=== PATIENT | male | born 1985 ===

== ENCOUNTER 2024-01-04 17:51 | Emergency (ER) | payer OTHER, SELFPAY ==
[2024-01-04 17:55] VITALS: BP 144/99; PULSE 89; TEMP 36.7; O2SAT 98; BMI 37.3
--- NOTE | 2024-01-04 17:56 | ED_ITS ---
HPI - Skin/Abscess/Foreign Bdy General Chief complaint: Wound/Laceration Stated complaint: cyst on R shoulder Time Seen by Provider: 01/04/24 19:12 History of Present Illness ED Provider: Indio Jaimes MD HPI narrative: 38-year-old male otherwise healthy reports 8-10 days of an abscess of right superior shoulder. Seven days ago he saw his PCP's been on doxycycline adherent with the medication since that time. Denies any constitutional symptoms no neck stiffness or spreading but he feels like it has not improved despite the antibiotics. No history of hidradenitis suppurativa. Related Data Previous Rx's ?Medication ?Instructions ?Recorded cefadroxil 500 mg capsule 500 mg PO BID 5 days #10 caps 01/04/24 sulfamethoxazole 800 1 tab PO BID 5 days #10 tabs 01/04/24 mg-trimethoprim 160 mg tablet (Bactrim DS) Allergies Allergy/AdvReac Type Severity Reaction Status Date / Time No Known Allergies Allergy Unverified 01/04/24 17:56 [No Known Allergies*] [facility] Social History Social History Advance Directives: No Advance Directives Information Provided: No Physical Exam 2 Vital Signs: Vital Signs: Last Vital Signs Temp 97.9 F 01/04/24 18:44 Pulse 85 01/04/24 18:44 Resp 16 01/04/24 18:44 BP 130/79 01/04/24 18:44 Pulse Ox 97 01/04/24 18:44 O2 Del Method Room Air 01/04/24 18:44 BMI result Body Mass Index 37.3 Const: Other: GENERAL: Well appearing. No apparent distress. Alert. HEAD/NECK: No visual trauma. EYES: Normal to inspection. No conjunctival erythema. No discharge. ENMT: Hearing grossly normal. External nose normal. RESPIRATORY: Respiratory effort normal. CARDIOVASCULAR: Additional details (Grossly well perfused). SKIN: Proximally 4-5 cm erythematous fluctuant likely abscess lesion to the superior right shoulder right at the lateral trapezius the top of the shoulder. There is no surrounding lymphadenopathy redness. There is no lymphadenopathy of the neck his neck is supple. NEUROLOGICAL: Alert. Moving all extremities x4. Additional details (No gross motor deficits. Normal tone. ). PSYCHIATRIC: Alert. Appearance appropriate for situation. Course Course Course Narrative: This is a Rapid Medical Examination (RME) performed by Srinath Patrick PA-C in triage. Full HPI, ROS, assessment and treatment plan per primary provider in the Main ED. 38 yo male here for eval of cyst to R shoulder x8-9 days. reports pain/ warmth at the site. no histry of same. denies fever/ chills. + raised area erythema to right shoulder w/ central fluctuance. Warm, ttp. Plan: basic labs, I&D Medications Administered Discontinued Medications Generic Name Dose Route Start Last Admin Trade Name Cleo PRN Reason Stop Dose Admin Cephalexin HCl 500 mg 01/04/24 19:23 01/04/24 19:56 Cephalexin 500 Mg Capsule PO 01/04/24 19:24 500 mg ONCE ONE Administration Ibuprofen 800 mg 01/04/24 19:23 01/04/24 19:56 Ibuprofen 800 Mg Tablet PO 01/04/24 19:24 800 mg ONCE ONE Administration Lidocaine HCl 1 appl 01/04/24 19:23 01/04/24 19:56 Lidocaine 4 % Cream Kit TOPICAL 01/04/24 19:24 1 appl ONCE ONE Administration Protocol Lidocaine/Epinephrine 10 ml 01/04/24 19:23 01/04/24 19:56 Lidocaine Hcl 1%/Epi 1:100,000 10 Ml Vial INFILTRATI 01/04/24 19:24 10 ml ONCE ONE Administration Morphine Sulfate 15 mg 01/04/24 19:23 01/04/24 20:17 Morphine Sulfate Immed Release 15 Mg Tablet PO 01/04/24 19:24 Not Given ONCE ONE Trimethoprim/Sulfamethoxazole 1 tab 01/04/24 19:23 01/04/24 19:56 Sulfamethox/Trimeth 800/160 Tablet PO 01/04/24 19:24 1 tab ONCE ONE Administration Medical Decision Making Medical Decision Making MDM Narrative: 38-year-old male with superior right shoulder/trapezius superficial probably abscess. No constitutional symptoms or signs no sirs criteria. On doxycycline for 1 week. Plan for ultrasound to evaluate drainable collection, change antibiotics to Bactrim Keflex at minimum. After ultrasound see report below, there was a significant collection about 2 x 2.5 cm suggestive of abscess . No vascularity was seen. Needs decision was made after discussion with the patient to try incision and drainage see procedure note. We will escalate the antibiotics as planned above. Patient tolerated procedure well packing was placed he will come back in 2 days for packing removal and wound check. Ibuprofen Tylenol for pain, local dressing change counseled. __ EMERGENCY ULTRASOUND INTERPRETATION- Limited soft tissue [This study was ordered, performed, and interpreted by myself. The study reveals: Impression: Homogeneous, hypoechoic collection approximately 2 x 2.5 cm suggestive of abscess [Indication: Superficial fluctuance in the skin Findings: Homogeneous hypoechoic collection suggestive of abscess underlying the region of erythema on the shoulder/neck region Performed by: Indio Jaimes MD Images were stored on EMR through [employer] image archive software.] Lab Data MDM Lab Attestation statement: I reviewed the patient's lab results. 01/04/24 18:07 01/04/24 18:07 Labs: Lab Results 01/04/24 Range/Units 18:07 WBC 12.0 H (4.8-10.8) X10*3/uL RBC 5.08 (4.60-5.80) X10*6/uL Hgb 14.1 (14.0-18.0) g/dl Hct 41.9 L (42.0-52.0) % MCV 82.5 (80.0-98.0) fL MCH 27.8 (27.0-33.0) pg MCHC 33.7 (31.0-36.0) g/dl RDW 13.8 (11.0-16.0) % Plt Count 331 (160-400) X10*3/uL MPV 9.8 (9.4-12.4) fL Immature Gran % (Auto) 0.3 (0.0-0.4) % Neut % (Auto) 66.0 (45-73) % Lymph % (Auto) 23.5 (20-40) % Grayson % (Auto) 8.3 (2-11) % Eos % (Auto) 1.2 (0-4) % Baso % (Auto) 0.7 (0-2) % Lymph # (Auto) 2.8 (1.2-4.9) X10*3/uL Grayson # (Auto) 1.0 (0.1-1.2) X10*3/uL Eos # (Auto) 0.1 (0.0-0.4) X10*3/uL Baso # (Auto) 0.1 (0.0-0.2) X10*3/uL Abs Immat Gran (auto) 0.04 H (0.00-0.03) X10*3/uL Absolute Neuts (auto) 7.9 (2.0-8.3) x10*3/uL Absolute Nucleated RBC 0.000 (0.0-0.012) X10*3/uL Nucleated RBC % (auto) 0.0 (0.0-0.2) /100WBC Sodium 142 (135-145) mmol/L Potassium 4.0 (3.3-5.1) mmol/L Chloride 108 (96-108) mmol/L Carbon Dioxide 25 (22-29) mmol/L Anion Gap 13 (12-20) BUN 13 (9-16) mg/dL Creatinine 1.11 (0.5-1.4) mg/dL Estim Creat Clear Calc 107.8 Estimated GFR > 60 Random Glucose 163 H (60-115) mg/dL Calcium 10.1 (8.4-10.2) mg/dL Procedures Abscess I/D Site: neck (Right lateral superior trapezius) Side (if applicable): right Local Anesthetic: lidocaine 1%, with epi and other anesthetic (EMLA) Amount of anesthesia used (mL): 8 Technique: incised with blade and ultrasound guided (Static) Amount of fluid expressed (mL): 4 Sent for culture/gram staining?: Yes Irrigation: Yes Packing used?: iodoform Complications: pain Discharge Plan Discharge Clinical Impression: Abscess Patient Disposition: Home, Self-Care Instructions: Abscess (ED) Additional Instructions: _ DISCHARGE DIAGNOSES: Abscess of the skin probably infected hair follicle which will need delayed definitive treatment and evacuation surgically by Plastic or other surgeon HISTORY OF PRESENTATION: ?Abscess without improvement doxycycline for 1 week EMERGENCY DEPARTMENT COURSE,TESTS, TREATMENTS: While in the ED today you had an incision and drainage a culture of the wound was sent to the lab pus was removed and packing was placed to prevent reaccumulation of pus in the abscess. We will change her antibiotics and given you the 1st dose of the evening doses of these antibiotics here in the ER DISCHARGE MEDICATIONS: ?Antibiotics as prescribed see discharge paperwork FOLLOW-UP: ?Call your primary or general physician soon as possible to discuss your symptoms, your ED visit and to discuss follow up plans Return back to the emergency department or an urgent care Sunday, in 2 days in the afternoon preferably, have abscess packing removed and wound check for improvement. INSTRUCTIONS ?& RETURN PRECAUTIONS: If any symptoms change first call your primary physician, if it is after-hours your primary doctors office should have a provider senior telecommunications consultant you can speak with. If the symptoms are severe or very concerning to you then call 911 or return to the ED. Indio Jaimes MD Emergency Physician [facility] Prescriptions: New cefadroxil 500 mg capsule 500 mg PO BID 5 Days Qty: 10 0RF sulfamethoxazole-trimethoprim [Bactrim DS] 800-160 mg tablet 1 tab PO BID 5 Days Qty: 10 0RF Referrals: Po Francisco MD [Physician] - 3 days Print Language: Maori
[2024-01-04 18:10] LABS: MANUAL DIFF FLAG NO
[2024-01-04 18:16] LABS: Basophils Absolute Auto 0.1 X10*3/uL (0.0-0.2); Basophils Percent Auto 0.7 % (0-2); Eosinophils Absolute Auto 0.1 X10*3/uL (0.0-0.4); Eosinophils Percent Auto 1.2 % (0-4); Hematocrit 41.9 % (42.0-52.0); Hemoglobin 14.1 g/dl (14.0-18.0); Imm Gran Abs Auto 0.04 X10*3/uL (0.00-0.03); Imm Gran Pct Auto 0.3 % (0.0-0.4); Lymphocytes Absolute Auto 2.8 X10*3/uL (1.2-4.9); Lymphocytes Percent Auto 23.5 % (20-40); Mean Corpuscular HGB Conc 33.7 g/dl (31.0-36.0); Mean Corpuscular Hemoglobin 27.8 pg (27.0-33.0); Mean Corpuscular Volume 82.5 fL (80.0-98.0); Mean Platelet Volume 9.8 fL (9.4-12.4); Monocytes Percent Auto 8.3 % (2-11); Neutrophils Absolute Auto 7.9 x10*3/uL (2.0-8.3); Platelet Count 331 X10*3/uL (160-400); Red Blood Count 5.08 X10*6/uL (4.60-5.80); Red Cell Distribution Width 13.8 % (11.0-16.0)
[2024-01-04 18:24] LABS: Anion Gap 13 (12-20); Blood Urea Nitrogen 13 mg/dL (9-16); Calcium 10.1 mg/dL (8.4-10.2); Carbon Dioxide 25 mmol/L (22-29); Chloride 108 mmol/L (96-108); Creatinine Clr Calc Pharmacy 107.8; Estimated Glomerular Filt Rate > 60; Glucose Random 163 mg/dL (60-115); Sodium 142 mmol/L (135-145)
[2024-01-04 18:44] VITALS: BP 130/79; PULSE 85; RESP 16; TEMP 36.6; O2SAT 97
[2024-01-04] MEDS: Lidocaine 4 % Cream KIT 1 APPL TOPICAL (19:56)
[2024-01-04] MEDS: cephALEXin 500 MG CAPSULE PO (19:56)
[2024-01-04] MEDS: Ibuprofen 800 MG TABLET PO (19:56)
[2024-01-04] MEDS: Sulfamethox/Trimeth 800/160 TABLET 1 TAB PO (19:56)
[2024-01-04] MEDS: Lidocaine HCl 1%/Epi 1:100,000 10 ML VIAL INFILTRATI (19:56)
[2024-01-04 21:00] VITALS: BP 130/79; PULSE 85; RESP 16; TEMP 36.6; O2SAT 97
== END 2024-01-04 21:01 | disposition home or self-care (01) ==
PROVIDERS: Physician Assistant Medical; Emergency Provider Emergency Medicine; PCP Internal Medicine
DX: L02.413 Cutaneous abscess of right upper limb (principal)
CPT/HCPCS: 10060; 36415; 80048; 85025; 87070; 87077; 87186; 87205; 99283; 99284

== ENCOUNTER 2024-01-06 15:02 | Emergency (ER) | payer OTHER, SELFPAY ==
[2024-01-06 15:15] VITALS: BP 121/65; PULSE 83; RESP 20; TEMP 37.2; O2SAT 98; BMI 37.3
--- NOTE | 2024-01-06 15:38 | ED_ITS ---
HPI - Recheck/Abnormal Lab/Rx General Chief Complaint: Recheck/Abnormal Lab/Rx Stated Complaint: Recheck Right shoulder cyst Time Seen by Provider: 01/06/24 15:31 Source: patient Mode of arrival: ambulatory Limitations: no limitations History of Present Illness ED Provider: Bee Mann APRN HPI narrative: 38-year-old male with no known medical history presents the ER for abscess recheck and packing removal. Patient reports he was seen here 2 days ago and have had an abscess drained on his right shoulder. He was prescribed antibiotics which he is taking as prescribed. He has no complaints. No fevers, chills. He feels that the site is healing well Related Data Previous Rx's ?Medication ?Instructions ?Recorded cefadroxil 500 mg capsule 500 mg PO BID 5 days #10 caps 01/04/24 sulfamethoxazole 800 1 tab PO BID 5 days #10 tabs 01/04/24 mg-trimethoprim 160 mg tablet (Bactrim DS) Allergies Allergy/AdvReac Type Severity Reaction Status Date / Time No Known Allergies Allergy Unverified 01/06/24 15:17 [No Known Allergies*] Review of Systems 2 Review of Systems: Yes all other systems are reviewed and are negative Constitutional: Constitutional: Reports no additional constitutional complaints, Denies body ache(s), Denies chills, Denies fever(s), Denies headache(s) and Denies weakness Eyes: Eyes: Reports no additional eye complaints and Denies change in vision ENT: Reports system reviewed and no additional complaints, except as documented, Denies dizziness, Denies headache(s), Denies nasal congestion, Denies nasal discharge and Denies neck pain Cardiovascular: Cardiovascular: Reports no additional cardiovascular complaints, Denies chest pain, Denies leg edema and Denies dyspnea Respiratory: Respiratory: Reports no additional respiratory complaints, Denies cough and Denies dyspnea Gastrointestinal: Gastrointestinal: Reports no additional gastrointestinal complaints, Denies abdominal pain, Denies diarrhea, Denies nausea and Denies vomiting Genitourinary: Genitourinary: Denies urinary incontinence Musculoskeletal: Musculoskeletal: Reports no additional musculoskeletal complaints, Denies back pain, Denies arthralgias, Denies joint swelling, Denies neck pain, Denies numbness and Denies tingling Integumentary/Breasts: Skin/Breast: Reports system reviewed and no additional complaints, except as docu and Denies rash Neurologic: Reports system reviewed and no additional complaints, except as documented, Denies Abnormal speech present, Denies dizziness, Denies headache(s), Denies numbness, Denies tingling and Denies weakness PMFSH Past Medical History Attestation statement: The following information was validated with the patient. Source: old records reviewed and nursing notes reviewed Social History Social History Do you have a plan to hurt others: No Plan Physical Exam 2 Vital Signs: Vital Signs: Last Vital Signs Temp 98.9 F 01/06/24 15:15 Pulse 83 01/06/24 15:15 Resp 20 01/06/24 15:15 BP 121/65 01/06/24 15:15 Pulse Ox 98 01/06/24 15:15 O2 Del Method Room Air 01/06/24 15:15 BMI result Body Mass Index 37.3 Const: General: cooperative, healthy appearing, comfortable and no acute distress Orientation/consciousness: patient oriented x3 Limitations: no limitations HEENT: Head: Yes normal to inspection Ears: hearing grossly normal bilaterally General nose exam: Normal external nose present Face and sinus: Yes normal facial exam Mouth: Normal oral and palatal mucosa present Throat: Yes posterior oropharynx normal Eyes: General: appearance normal, both eyes and all related structures P upils: Equal, round and reactive pupils present Neck: Neck: Yes normal visual inspection Neck images: 1. Abscess seen. Packing was removed. No additional fluctuance. Slight bleeding noted. Chest: Chest palpation & inspection: normal inspection of the chest Resp: Effort & Inspection: normal respiratory effort Auscultation: clear to auscultation bilaterally Cardio: Rate: regular rate Rhythm: regular rhythm Peripheral pulses: P eripheral pulses 2+ throughout GI: Inspection: Yes normal to inspection Palpation (GI): Soft to palpation and nontender Auscultation: normal bowel sounds Back/Spine/Pelvis: Thoracic/Lumbar Spine: thoracic and lumbar spine normal to inspection Skin: General skin exam: no rashes or lesions noted Neuro: General: patient oriented x3, no focal motor deficits and normal sensation to monofilament Cranial nerves: Yes Equal, round and reactive pupils present Cognition (Neuro): normal cognition Speech: No Abnormal speech present Gait exam (Neuro): Normal gait present Motor exam (neuro): 5/5 motor strength present throughout Extrem: General: Yes normal to inspection Medical Decision Making Medical Decision Making MDM Narrative: 38-year-old male with no known medical history presents the ER for abscess recheck and packing removal. Patient reports he was seen here 2 days ago and have had an abscess drained on his right shoulder. He was prescribed antibiotics which he is taking as prescribed. He has no complaints. No fevers, chills. He feels that the site is healing well Packing was removed from abscess. It appears to be healing well. Recommend patient continue his oral antibiotics and return for any worsening signs or symptoms Differential Diagnosis Differential Diagnoses: The differential diagnosis associated with the presentation includes Healing abscess External Record Review External record reviewed: Outside ED record Prescription Management I considered prescription management with: Antibiotic Procedures Procedure Narrative Procedure Narrative: Packing removed from right upper shoulder abscess. Site was cleansed and a dressing was put in place Discharge Plan Discharge Clinical Impression: Abscess re-check Patient Disposition: Home, Self-Care Instructions: Abscess Follow-up (ED) Additional Instructions: Continue to take your antibiotics Change dressing daily Return for worsening signs or symptoms Prescriptions: No Action cefadroxil 500 mg capsule 500 mg PO BID 5 Days Qty: 10 0RF sulfamethoxazole-trimethoprim [Bactrim DS] 800-160 mg tablet 1 tab PO BID 5 Days Qty: 10 0RF Referrals: Jodie Reynolds MD [Primary Care Provider] - 1 week Print Language: Cook Islander
--- OUTSIDE RECORDS SUMMARY | 2024-01-06 15:49 | XMS_ITS | Continuity of Care Document ---
Author Organization [facility] Address [address] [place] [address]- Care Team Providers Care Procurement Representative Name Role Phone Jodie Reynolds MD Primary Care Physician [phone] Encounter [facility] Date(s): 05/12/19 - 06/19/19 [facility] [address] [place] [address]- [facility] Attending Physician: Joide Reynolds MD Admitting Physician: Jodie Reynolds MD Allergies, Adverse Reactions, Alerts Substance Reaction Severity Status NKA Active Immunizations Given and Recorded Vaccine Date Status Refusal Reason influenza virus vaccine, inactivated 03/28/19 Give n influenza virus vaccine, inactivated 04/09/18 Give n influenza virus vaccine, inactivated 05/09/16 Give n influenza virus vaccine, inactivated 04/22/15 Give n influenza virus vaccine, inactivated 04/06/14 Give n Measles/Mumps/Rubella Virus Vaccine 07/17/16 Given tetanus/diphtheria/pertussis, acel(Tdap) 07/17/16 Given influ virus vac, H1N1, inactive(oldterm) 1 09/02/09 Given tetanus-diphtheria toxoids (Td) 2 05/31/09 Given 1Admin Note: VIS 03/19 2Admin Note: vis 04/18 Medications aspirin 81 mg oral tablet 1 tablet = 81 mg, By Mouth, Daily, 0 Refills, Maintenance, 04/09/18 16:10:19 EDT, Tablet Start Date: 04/09/18 Status: Ordered Citrucel 2 gm/19 gm oral powder for reconstitution = 2 Gm, By Mouth, 2 times a day, with full glass of water, # 507 Gm, 2 Refills, Maintenance, 03/28/19 10:21:44 EDT Start Date: 03/28/19 Status: Ordered docusate sodium 100 mg oral capsule 100 mg, 1, capsule, By Mouth, 2 times a day, PRN, # 60 capsule, Refills 2, Tot. Refills 2, Maintenance, for constipation, 03/28/19 10:21:59 EDT, Route to Pharmacy Electronically, [id number], [facility]/pharmacy #[id number] Start Date: 03/28/19 Stop Date: 06/26/19 Status: Ordered fluticasone 50 mcg/inh nasal spray 1 sprays, Nares, Both, Daily in AM, # 1 each, 2 Refills, Maintenance, 04/09/18 16:28:28 EDT, [place],1 sprays Nares, Both Daily in AM Start Date: 04/09/18 Status: Ordered Metoprolol Succinate ER 50 mg oral tablet, extended release 0 Refills, Maintenance, 03/28/19 10:06:51 EDT Start Date: 03/28/19 Status: Ordered Problem List Condition Effective Dates Status Health Status Inform ant Immunity status testing: equ ivocal immunity to Mumps (Confirmed) Active Hypertension(Confirmed) Active Prediabetes(Confirmed) 2013 Active Morbid obesity(Confirmed) Active Obesity(Confirmed) Active AF (paroxysmal atrial fibril lation), at time of 6 shots and trhee beers ( Alcohol,) per 5.9.2016 [place] record. sees cardioloy in [place](Confirmed) 10/2015 Active Rectal bleed in past, declin ed work-up/did not attend(Confirmed) Active Sick sinus syndrome(Confirmed) Active Vitamin D deficiency(Confirmed) Active Social History Social History Type Response Smoking Status Former smoker entered on: 05/09/16 Sex
--- OUTSIDE RECORDS SUMMARY | 2024-01-06 15:49 | XMS_ITS | Continuity of Care Document ---
Author Organization [facility] Address [address] [place] [address]- Care Team Providers Care Practice Or Student Teacher Name Role Phone Gail JONES, Jodie Primary Care Physician [phone] Encounter [facility] Date(s): 07/10/19 - 08/13/19 [facility] [address] [place] [address] Attending Physician: Rebecca Delacruz DO Admitting Physician: Rebecca Delacruz DO Allergies, Adverse Reactions, Alerts Substance Reaction Severity [...] 03/28/19 10:21:59 EDT, Route to Pharmacy Electronically, [id number], [facility]/pharmacy #[id number] Start Date: 03/28/19 Stop Date: 06/26/19 Status: Ordered fluticasone 50 mcg/inh nasal spray 1 sprays, Nares, Both, Daily in AM, # 1 each, 2 Refills, Maintenance, 04/09/18 16:28:28 EDT, [place],1 sprays Nares, Both Daily in AM Start [...] and trhee beers ( Alcohol,) per 5.9.2016 [place] record. sees cardioloy in [place](Confirmed) 10/2015 Active Rectal bleed in past, declin ed work-up/did not attend(Confirmed) Active Sick sinus syndrome(Confirmed) Active Vitamin D deficiency(Confirmed) Active Social History Social History Type Response Smoking Status Former smoker entered on: 05/09/16 Sex Male
--- OUTSIDE RECORDS SUMMARY | 2024-01-06 15:49 | XMS_ITS | Continuity of Care Document ---
Author Organization [facility] Address [address] [place] [address] ve [address] [place] [address]- Care Team Providers Care Support Coordinator Name Role Phone Gail JONES, Jodie Primary Care Physician Encounter [facility] Date(s): 09/03/19 - 09/13/[address] [place] [address]- [facility] Attending Physician: Timbo Viramontes8 Admitting Physician: AdmJosseline ricardo Referring Physician: Admtr Ar8 Allergies, Adverse Reactions, Alerts Substance Reaction Severity [...] 03/28/19 10:21:59 EDT, Route to Pharmacy Electronically, [id number], [facility]/pharmacy #[id number] Start Date: 03/28/19 Stop Date: 06/26/19 Status: Ordered fluticasone 50 mcg/inh nasal spray 1 sprays, Nares, Both, Daily in AM, # 1 each, 2 Refills, Maintenance, 04/09/18 16:28:28 EDT, [place],1 sprays Nares, Both Daily in AM Start [...] Obesity(Confirmed) Active AF (paroxysmal atrial fibril lation), -2015 at time of 6 shots and trhee beers ( Alcohol,) per 5.9.2016 [place] record. sees cardioloy in [place](Confirmed) 10/2015 Active Rectal bleed in past, declin ed work-up/did not attend(Confirmed) Active Sick sinus syndrome(Confirmed) Active Vitamin D deficiency(Confirmed) Active Social History Social History Type Response Smoking Status Former smoker entered on: 05/09/16 Sex Male
--- OUTSIDE RECORDS SUMMARY | 2024-01-06 15:49 | XMS_ITS | Continuity of Care Document ---
Author Organization [facility] Address [address] [place] [address]- Care Team Providers Care Reed Or Wind Instrument Repairer Name Role Phone Jodie Reynolds MD Primary Care Physician Encounter [facility] Date(s): 10/14/21 - 12/29/21 [facility] [address] [place] [id number] Attending Physician: Jodie Reynolds MD Admitting Physician: Jodie Reynolds MD Allergies, Adverse Reactions, Alerts No Known Allergies Immunizations Given and Recorded Vaccine Date Status Refusal Reason influenza virus vaccine, inactivated 03/28/19 Give n influenza virus vaccine, inactivated 04/09/18 Give n influenza virus vaccine, inactivated 05/09/16 Give n influenza virus vaccine, inactivated 04/22/15 Give n influenza virus vaccine, inactivated 04/06/14 Give n tetanus/diphtheria/pertussis, acel(Tdap) 07/17/16 Given Measles/Mumps/Rubella Virus Vaccine 07/17/16 Given influ virus vac, H1N1, inactive(oldterm) 1 09/02/09 Given tetanus-diphtheria toxoids (Td) 2 05/31/09 Given 1Admin Note: VIS 03/19 2Admin Note: vis 04/18 Medications aspirin 81 mg oral tablet 1 tablet = 81 mg, By Mouth, Daily, buys on his own. via cardiology he says, 0 Refills, Maintenance,09/30/19 14:34:00 EDT Start Date: 09/30/19 Status: Ordered Citrucel 2 gm/19 gm oral [...] 03/28/19 10:21:59 EDT, Route to Pharmacy Electronically, [id number], [facility]/pharmacy #[id number] Start Date: 03/28/19 Stop Date: 06/26/19 Status: Ordered fluticasone 50 mcg/inh nasal spray 1 sprays, Nares, Both, Daily in AM, # 1 each, 2 Refills, Maintenance, 09/30/19 14:33:00 EDT, [place],[facility]pharmacy #[id number], only fill when he requests, 1 sprays Nares, Both Daily in AM, 173, cm, 07/23/2012:27:00 EST, Height Start Date: 09/30/19 Status: Ordered Metoprolol Succinate ER 50 mg [...] and trhee beers ( Alcohol,) per 5.9.2016 [place] record. sees cardioloy in [place](Confirmed) 10/2015 Active Rectal bleed in past, declin ed work-up/did not attend(Confirmed) Active Sick sinus syndrome(Confirmed) Active Vitamin D deficiency(Confirmed) Active Social History Social History Type Response Smoking Status Former smoker entered on: 05/09/16 Sex Male
--- OUTSIDE RECORDS SUMMARY | 2024-01-06 15:49 | XMS_ITS | Continuity of Care Document ---
Author Organization [facility] Address [address] [place] [id number]- Care Team Providers Care Corporate Tutor Name Role Phone Gail JONES, Jodie Primary Care Physician Encounter [facility] Date(s): 09/30/19 - 10/30/19 [facility] [address] [place] [id number]- [facility] Attending Physician: Josseline Viramontes Admitting Physician: Josseline Viramontes Referring Physician: AdmtrJosseline Allergies, Adverse Reactions, Alerts Substance Reaction Severity [...] 03/28/19 10:21:59 EDT, Route to Pharmacy Electronically, [id number], [facility]/pharmacy #[id number] Start Date: 03/28/19 Stop Date: 06/26/19 Status: Ordered fluticasone 50 mcg/inh nasal spray 1 sprays, Nares, Both, Daily in AM, # 1 each, 2 Refills, Maintenance, 09/30/19 14:33:00 EDT, [place],[facility]/pharmacy #[id number], only fill when he requests, 1 [...] and trhee beers ( Alcohol,) per 5.9.2016 [place] record. sees cardioloy in [place](Confirmed) 10/2015 Active Rectal bleed in past, declin ed work-up/did not attend(Confirmed) Active Sick sinus syndrome(Confirmed) Active Vitamin D deficiency(Confirmed) Active Social History Social History Type Response Smoking Status Former smoker entered on: 05/09/16 Sex Male
--- OUTSIDE RECORDS SUMMARY | 2024-01-06 15:49 | XMS_ITS | Continuity of Care Document ---
Author Organization [facility] Address [address] [place] [address]- Care Team Providers Care Rubber Extrusion Machine Operator Name Role Phone Jodie Reynolds MD Primary Care Physician [facility] Date[facility]): [facility]23 - 09/01/23 [facility] [address] [place] [id number] Allergies, Adverse Reactions, Alerts No Known Allergies [...] Note: VIS 03/19 2Admin Note: vis 04/18 Problem List Condition Confirmation Course Effective Dates Status Health St atus Informant Immunity status testing: equivocal immunity to Mumps Confirmed Active Hypertension Confirmed Active Prediabetes Confirmed 2013 Active Morbid obesity Confirmed Active Obesity Confirmed Active AF (paroxysmal atrial fibrillation), at time of 6 shots and trhee beers ( Alcohol,) per 5.9.2016 [place] record. sees cardioloy in [place] Confirmed 10/2015 Active Rectal bleed in past, declined work-up/did not attend Confirmed Active Severe obesity (BMI 35.0-39.9) with comorbidity Confirmed Active Sick sinus syndrome Confirmed Active Vitamin D deficiency Confirmed Active Social History Social History Type Response Smoking Status Former smoker entered on: 05/09/16 Sex Male Patient Care team information Care Team Personnel Name: Jodie Reynolds MD Position: S Physician - Primary Care Member Role: PCP Address: Address: [address] [place] [address]- Care Team Related Persons Name: QUEZADAFERNANDO Address: home [address] [place] [address]
--- OUTSIDE RECORDS SUMMARY | 2024-01-06 15:49 | XMS_ITS | Continuity of Care Document ---
Author Organization [facility] As formerly [facility] Address [address] [place] [address] [address] [place] [address]- Care Team Providers Care Coat Feller Name Role Phone Jodie Reynolds MD Primary Care Physician [phone] [place] [facility] [place] - 07/11/[address] [place] [address]- [facility] Encounter Diagnosis Hematochezia(Discharge Diagnosis) - 07/04/19 Attending Physician: Desiree CHIRINOS, Roshni Renner Referring Physician: Jodie Reynolds MD Allergies, Adverse Reactions, [...] 03/28/19 10:21:59 EDT, Route to Pharmacy Electronically, [id number], [facility]/pharmacy #[id number] Start Date: 03/28/19 Stop Date: 06/26/19 Status: Ordered fluticasone 50 mcg/inh nasal spray 1 sprays, Nares, Both, Daily in AM, # 1 each, 2 Refills, Maintenance, 04/09/18 16:28:28 EDT, [place],1 sprays Nares, Both Daily in AM Start [...] and trhee beers ( Alcohol,) per 5.9.2016 [place] record. sees cardioloy in [place](Confirmed) 10/2015 Active Rectal bleed in past, declin ed work-up/did not attend(Confirmed) Active Sick sinus syndrome(Confirmed) Active Vitamin D deficiency(Confirmed) Active Diagnosis Diagnosis Type Effective Dates Health Status Cl inical Service Informant Hematochezia Discharge Diagnosis 07/04/19 Vital Signs Most recent to oldest [Reference Range]: 1 Height 173.00 cm (07/04/19 9:06 AM) Weight 118.4 kg (07/04/19 9:06 AM) Pulse Rate [55-90 bpm] 80 bpm (07/04/19 9:06 AM) Body Mass Index [18.5-24.99] 39.56 *>HHI* (07/04/19 9:06 AM) Blood Pressure [90-138/55-84 mm Hg] 142/ 87mm Hg *H* (07/04/19 9:06 AM) Temperature [96.8-100.4 DegF] 96.7 DegF *L* (07/04/19 9:06 AM) Blood pressure sites Arm, left (07/04/19 9:06 AM) Temperature Route Temporal (07/04/19 9:06 AM) Weight Obtained Via Standing scale (07/04/19 9:06 AM) Social History Social History Type Response Smoking Status Former smoker entered on: 05/09/16 Sex
--- OUTSIDE RECORDS SUMMARY | 2024-01-06 15:49 | XMS_ITS | Continuity of Care Document ---
Author Organization [facility] Address [address] [place] [address]- Care Team Providers Care Clinical Manager Home Care Name Role Phone Jodie Reynolds MD Primary Care Physician [place] [facility] [place]26[place]22 - 06/25/22 [facility] [address] [place] [id number] Allergies, Adverse Reactions, Alerts No Known Allergies [...] VIS 03/19 2Admin Note: vis 04/18 Medications ergocalciferol 50598 iu oral capsule 50,000 International_Units, 1, capsule, By Mouth, Every Sunday, for 30 days, # 5 capsule, Refills 1, Tot. Refills 1, Acute 07/24/22 19:36:00 EST, 05/25/22 19:36:00 EST, Route to Pharmacy Electronically, [facility]/pharmacy #[id number], Partial fill upon patient re... Start Date: 05/25/22 Stop Date: 07/24/22 Status: Ordered Metoprolol Succinate ER 50 mg oral tablet, extended release 0 Refills, Maintenance, 03/28/19 10:06:51 EDT Start Date: 03/28/19 Status: Ordered Problem List Condition Confirmation Course Effective Dates Status Health St atus Informant Immunity status testing: equivocal immunity to Mumps Confirmed Active Hypertension Confirmed Active Prediabetes Confirmed 2013 Active Morbid obesity Confirmed Active Obesity Confirmed Active AF (paroxysmal atrial fibrillation), at time of 6 shots and trhee beers ( Alcohol,) per 5.9.2016 [place] record. sees cardioloy in [place] Confirmed 10/2015 Active Rectal bleed in past, declined work-up/did not attend Confirmed Active Severe obesity (BMI 35.0-39.9) with comorbidity Confirmed Active Sick sinus syndrome Confirmed Active Vitamin D deficiency Confirmed Active Social History Social History Type Response Smoking Status Former smoker entered on: 05/09/16 Sex Male Patient Care team information Care Team Personnel Name: Jodie Reynolds MD Position: [facility] Primary Care Physician Member Role: PCP Address: Address: [address] [place] [address]- Care Team Related Persons Name: FERNANDO QUEZADA Address: home [address] [place] [address]
--- OUTSIDE RECORDS SUMMARY | 2024-01-06 15:49 | XMS_ITS | Continuity of Care Document ---
Author Organization [facility] Address [address] [place] [address]- Care Team Providers Care General Accounting Clerk Name Role Phone Jodie Reynolds MD Primary Care Physician [place] [facility] [place] 08/31/23 - 12/29/23 [facility] [address] [place] [phone] Attending Physician: Jodie Reynolds MD Admitting Physician: [...] VIS 03/19 2Admin Note: vis 04/18 Medications doxycycline hyclate 100 mg oral capsule 1 capsule = 100 mg, By Mouth, 2 times a day, for 7 days, with fluids may take with food to minimizeabdominal discomfort, # 14 capsule, 0 Refills, Acute 01/04/24 15:09:00 EDT, 12/28/23 15:09:00 EDT, Capsule, [id number], Please dispense monohy... Start Date: 12/28/23 Stop Date: 01/04/24 Status: Ordered Problem List Condition Confirmation Course Effective Dates Status Health St atus Informant Immunity status testing: equivocal immunity to Mumps Confirmed Active Hypertension Confirmed Active Prediabetes Confirmed 2013 Active Morbid obesity Confirmed Active Obesity Confirmed Active AF (paroxysmal atrial fibrillation), at time of 6 shots and trhee beers ( Alcohol,) per 5.9.2015 [place] record. sees cardioloy in [place] Confirmed 10/2015 Active Rectal bleed in past, declined work-up/did not attend Confirmed Active Severe obesity (BMI 35.0-39.9) with comorbidity Confirmed Active Sick sinus syndrome Confirmed Active Vitamin D deficiency Confirmed Active Social History Social History Type Response Smoking Status Former smoker entered on: 05/09/16 Sex Male Patient Care team information Care Team Personnel Name: Jodie Reynolds MD Position: [facility] Physician - Primary Care Member Role: PCP Address: Address: [address] [place] [address]- Care Team Related Persons Name: FERNANDO QUEZADA Address: home [address] [place] [id number]
--- OUTSIDE RECORDS SUMMARY | 2024-01-06 15:49 | XMS_ITS | Continuity of Care Document ---
Author Organization [facility] Address [address] [place] [address]- Care Team Providers Care Private Client Advisor Name Role Phone Jodie Reynolds MD Primary Care Physician [phone] [facility]s): 08/02/23 - 09/01/23 [facility] [address] [place] [id number] Allergies, Adverse Reactions, Alerts No Known Allergies [...] and trhee beers ( Alcohol,) per 5.9.2016 [place] record. sees cardioloy in [place] Confirmed 10/2015 Active Rectal bleed in past, [...] Primary Care Member Role: PCP Address: Address: [address] [place] [address]- Care Team Related Persons Name: FERNANDO QUEZADA Address: home [address] [place] [address]
--- OUTSIDE RECORDS SUMMARY | 2024-01-06 15:49 | XMS_ITS | Continuity of Care Document ---
Author Organization [facility] Address [address] [place] [address]- Care Team Providers Care Certified Real Estate Appraiser Name Role Phone Jodie Reynolds MD Primary Care Physician [phone] [facility] Date[facility]s): 10/14/21 - 11/13/21 [facility] [address] [place] [id number] Allergies, Adverse Reactions, Alerts No Known [...] 03/28/19 10:21:59 EDT, Route to Pharmacy Electronically, [id number], [facility]/pharmacy #[id number] Start Date: 03/28/19 Stop Date: 06/26/19 Status: Ordered fluticasone 50 mcg/inh nasal spray 1 sprays, Nares, Both, Daily in AM, # 1 each, 2 Refills, Maintenance, 09/30/19 14:33:00 EDT, [place],[facility]/pharmacy #[id number], only fill when he requests, 1 [...] and trhee beers ( Alcohol,) per 5.9.2016 [place] record. sees cardioloy in [place](Confirmed) 10/2015 Active Rectal bleed in past, declin ed work-up/did not attend(Confirmed) Active Sick sinus syndrome(Confirmed) Active Vitamin D deficiency(Confirmed) Active Social History Social History Type Response Smoking Status Former smoker entered on: 05/09/16 Sex Male
--- OUTSIDE RECORDS SUMMARY | 2024-01-06 15:49 | XMS_ITS | Continuity of Care Document ---
Author Organization [facility] Address [address] [place] [address]- Care Team Providers Care Exchange Specialist Name Role Phone Jodie Reynolds MD Primary Care Physician [phone] [facility] Date[facility]s): 09/30/19 - 10/07/19 [facility] [address] [place] [id number]- [facility] Attending Physician: Jodie Reynolds MD Allergies, Adverse Reactions, [...] 03/28/19 10:21:59 EDT, Route to Pharmacy Electronically, [id number], [id number] Start Date: 03/28/19 Stop Date: 06/26/19 Status: Ordered fluticasone 50 mcg/inh nasal spray 1 sprays, Nares, Both, Daily in AM, # 1 each, 2 Refills, Maintenance, 09/30/19 14:33:00 EDT, [id number], only fill when he requests, 1 [...] and trhee beers ( Alcohol,) per 5.9.2016 [place] record. sees cardioloy in [place](Confirmed) 10/2015 Active Rectal bleed in past, declin ed work-up/did not attend(Confirmed) Active Sick sinus syndrome(Confirmed) Active Vitamin D deficiency(Confirmed) Active Social History Social History Type Response Smoking Status Former smoker entered on: 05/09/16 Sex Male
--- OUTSIDE RECORDS SUMMARY | 2024-01-06 15:49 | XMS_ITS | Continuity of Care Document ---
Author Organization [facility] Address [address] [place] [address]- Care Team Providers Care Inventory Administrator Name Role Phone Jodie Reynolds MD Primary Care Physician En[place] [facility] [place] Date(s): 04/03/22 - 05/03/22 [facility] [address] [place] [id number] Allergies, Adverse Reactions, Alerts No Known [...] 03/28/19 10:21:59 EDT, Route to Pharmacy Electronically, [id number], [id number] Start Date: 03/28/19 Stop Date: 06/26/19 Status: Ordered fluticasone 50 mcg/inh nasal spray 1 sprays, Nares, Both, Daily in AM, # 1 each, 2 Refills, Maintenance, 09/30/19 14:33:00 EDT, [id number], only fill when he requests, 1 [...] shots and trhee beers ( Alcohol,) per 5.9 [place] record. sees cardioloy in [place] Confirmed 10/2015 Active Rectal bleed in past, declined work-up/did not attend Confirmed Active Sick sinus syndrome Confirmed Active Vitamin D deficiency Confirmed Active Social History Social History Type Response Smoking Status Former smoker entered on: 05/09/16 Sex Male Patient Care team information Care Team Personnel Name: Jodie Reynolds MD Position: [facility] Primary Care Physician Member Role: PCP Address: Address: [facility] [place] [address]- Care Team Related Persons Name: FERNANDO QUEZADA Address: home [address] [place] [id number]
--- OUTSIDE RECORDS SUMMARY | 2024-01-06 15:50 | XMS_ITS | Continuity of Care Document ---
Author Organization [facility] Address [address] [place] [address]- Care Team Providers Care Shank Archer Name Role Phone Jodie Reynolds MD Primary Care Physician [phone] [facility]counter [facility] Date[facility]s): 04/10/23 - 05/10/23 [facility] [address] [place] [id number] Attending Physician: Josseline Viramontes Admitting Physician: AdmJosseline ricardo Referring Physician: AdmtrJosseline Allergies, Adverse Reactions, Alerts No Known Allergies [...] and trhee beers ( Alcohol,) per 5.9.2016 [place] record. sees cardioloy in [place] Confirmed 10/2015 Active Rectal bleed in past, declined work-up/did not attend Confirmed Active Severe obesity (BMI 35.0-39.9) with comorbidity Confirmed Active Sick sinus syndrome Confirmed Active Vitamin D deficiency Confirmed Active Social History Social History Type Response Smoking Status Former smoker entered on: 05/09/16 Sex Male Hospital Consult note * Event Display: Inpatient Consult Note, Non- Authored Date: Consult note * Cordelia Hutchinson: PERFORM Event Display: Consultation Note Authored Date: Cardiology * Event Display: Cardiology Office Note, Non- Authored Date: * Event Display: Cardiology Office Note, Non- Authored Date: * Event Display: Cardiology Office Note, Non- Authored Date: Patient Care team information Care Team Personnel Name: Jodie Reynolds MD Position: S Physician - Primary Care Member Role: PCP Address: Address: [address] [place] [address]- Care Team Related Persons Name: FERNANDO QUEZADA Address: home [address] [place] [address]
--- OUTSIDE RECORDS SUMMARY | 2024-01-06 15:50 | XMS_ITS | Continuity of Care Document ---
Author Organization [facility] Adult [facility] Address [address] [place] [address]- Care Team Providers Care Saw Runner Name Role Phone Jodie Reynolds MD Primary Care Physician [phone] [facility] Date[facility]s): 05/20/19 - 05/30/19 [facility] [address] [place] [address]- [facility] Attending Physician: Admdavion, Josseline Admitting Physician: Admtr, Ar8 Referring Physician: Admtr, Ar8 Allergies, Adverse Reactions, Alerts Substance Reaction [...] 03/28/19 10:21:59 EDT, Route to Pharmacy Electronically, [id number], [facility]/pharmacy #[id number] Start Date: 03/28/19 Stop Date: 06/26/19 Status: Ordered fluticasone 50 mcg/inh nasal spray 1 sprays, Nares, Both, Daily in AM, # 1 each, 2 Refills, Maintenance, 04/09/18 16:28:28 EDT, [place],1 sprays Nares, Both Daily in AM Start [...] and trhee beers ( Alcohol,) per 5.9.2016 [place] record. sees cardioloy in [place](Confirmed) 10/2015 Active Rectal bleed in past, declin ed work-up/did not attend(Confirmed) Active Sick sinus syndrome(Confirmed) Active Vitamin D deficiency(Confirmed) Active Social History Social History Type Response Smoking Status Former smoker entered on: 05/09/16 Sex
--- OUTSIDE RECORDS SUMMARY | 2024-01-06 15:50 | XMS_ITS | Continuity of Care Document ---
Author Organization [facility] Address [address] [place] [address]- Care Team Providers Care Buggy Runner Name Role Phone Jodie Reynolds MD Primary Care Physician [phone] Encounter [facility] Date(s): 06/02/22 - 07/02/22 [facility] [address] [place] [id number] Allergies, Adverse Reactions, Alerts No Known [...] 03/19 2Admin Note: vis 04/18 Medications ergocalciferol 07844 iu oral capsule 50,000 International_Units, 1, capsule, By Mouth, Every Sunday, for 30 days, # 5 capsule, Refills 1, Tot. Refills 1, Acute 07/24/22 19:36:00 EST, 05/25/22 19:36:00 EST, Route to Pharmacy Electronically, [facility]/pharmacy #[id number], Partial fill upon patient re... Start Date: [...] and trhee beers ( Alcohol,) per 5.9.2016 [place] record. sees cardioloy in [place] Confirmed 10/2015 Active Rectal bleed in past, declined work-up/did not attend Confirmed Active Severe obesity (BMI 35.0-39.9) with comorbidity Confirmed Active Sick sinus syndrome Confirmed Active Vitamin D deficiency Confirmed Active Social History Social History Type Response Smoking Status Former smoker entered on: 05/09/16 Sex Male Patient Care team information Care Team Personnel Name: Jodie Reynolds MD Position: [facility] Primary Care Physician Member Role: PCP Address: Address: [address] [place] [address]- Care Team Related Persons Name: FERNANDO QUEZADA Address: home [address] [place] [id number]
--- OUTSIDE RECORDS SUMMARY | 2024-01-06 15:50 | XMS_ITS | Continuity of Care Document ---
Author Organization [facility] Address [address] [place] [address]- Care Team Providers Care Epic Analyst Name Role Phone Jodie Reynolds MD Primary Care Physician Encounter [place] Date(s): 05/25/22 - 06/24/22 [facility] [address] [place] [id number] Allergies, Adverse Reactions, Alerts No [...] 03/19 2Admin Note: vis 04/18 Medications ergocalciferol 44895 iu oral capsule 50,000 International_Units, 1, capsule, By Mouth, Every Sunday, for 30 days, # 5 capsule, Refills 1, Tot. Refills 1, Acute 07/24/22 19:36:00 EST, 05/25/22 19:36:00 EST, Route to Pharmacy Electronically, [facility]/pharmacy #[id number], Partial fill upon patient re... Start Date: [...] and trhee beers ( Alcohol,) per 5.9.2016 [place] record. sees cardioloy in [place] Confirmed 10/2015 Active Rectal bleed in past, declined work-up/did not attend Confirmed Active Severe obesity (BMI 35.0-39.9) with comorbidity Confirmed Active Sick sinus syndrome Confirmed Active Vitamin D deficiency Confirmed Active Social History Social History Type Response Smoking Status Former smoker entered on: 05/09/16 Sex Male Patient Care team information Care Team Personnel Name: Jodie Reynolds MD Position: [facility] Primary Care Physician Member Role: PCP Address: Address: [address] [place] [address]- Care Team Related Persons Name: FERNANDO QUEZADA Address: home [address] [place] [address]
--- OUTSIDE RECORDS SUMMARY | 2024-01-06 15:50 | XMS_ITS | Continuity of Care Document ---
Author Organization [facility] Adult [facility] Address [address] [place] [address]- Care Team Providers Care Portable Machine Sander Name Role Phone Jodie Reynolds MD Primary Care Physician [facility] [facility] [place] Date(s): 09/19/21 - 11/12/21 [facility] [address] [place] [id number] Attending Physician: Not on Staff, Attending MD Referring Physician: Jodie Reynolds MD Allergies, Adverse [...] 03/28/19 10:21:59 EDT, Route to Pharmacy Electronically, [id number], [facility] Start Date: 03/28/19 Stop Date: 06/26/19 Status: Ordered fluticasone 50 mcg/inh nasal spray 1 sprays, Nares, Both, Daily in AM, # 1 each, 2 Refills, Maintenance, 09/30/19 14:33:00 EDT, [id number], only fill when he requests, 1 [...] and trhee beers ( Alcohol,) per 5.9.2016 [place] record. sees cardioloy in [place](Confirmed) 10/2015 Active Rectal bleed in past, declin ed work-up/did not attend(Confirmed) Active Sick sinus syndrome(Confirmed) Active Vitamin D deficiency(Confirmed) Active Social History Social History Type Response Smoking Status Former smoker entered on: 05/09/16 Sex Male
--- OUTSIDE RECORDS SUMMARY | 2024-01-06 15:50 | XMS_ITS | Continuity of Care Document ---
Author Organization [facility] Address [address] [place] [address]- Care Team Providers Care Shelter Monitor Name Role Phone Jodie Reynolds MD Primary Care Physician [phone] [facility]s): 05/24/22 - 06/23/22 [facility] [address] [place], [place] [address] Attending Physician: Josseline Viramontes Admitting Physician: Admtr, Josseline Referring Physician: Admtr, Ar8 Allergies, Adverse Reactions, Alerts No Known Allergies [...] 03/19 2Admin Note: vis 04/18 Medications ergocalciferol 23912 iu oral capsule 50,000 International_Units, 1, capsule, By Mouth, Every Sunday, for 30 days, # 5 capsule, Refills 1, Tot. Refills 1, Acute 07/24/22 19:36:00 EST, 05/25/22 19:36:00 EST, Route to Pharmacy Electronically, [facility]/pharmacy #[id number], Partial fill upon patient re... Start Date: [...] and trhee beers ( Alcohol,) per 5.9.2016 [place] record. sees cardioloy in [place] Confirmed 10/2015 Active Rectal bleed in past, declined work-up/did not attend Confirmed Active Severe obesity (BMI 35.0-39.9) with comorbidity Confirmed Active Sick sinus syndrome Confirmed Active Vitamin D deficiency Confirmed Active Social History Social History Type Response Smoking Status Former smoker entered on: 05/09/16 Sex Male Hospital Consult note * Event Display: Inpatient Consult Note, Non- Authored Date: Note * Event Display: Cardiology Office Note, Non- Authored Date: * Event Display: Cardiology Office Note, Non- Authored Date: * Event Display: Cardiology Office Note, Non- Authored Date: Patient Care team information Care Team Personnel Name: Jodie Reynolds MD Position: [facility] Primary Care Physician Member Role: PCP Address: Address: [address] [place] [address]- Care Team Related Persons Name: FERNANDO QUEZADA Address: home [address] [place] [address]
--- OUTSIDE RECORDS SUMMARY | 2024-01-06 15:50 | XMS_ITS | Continuity of Care Document ---
Author Organization [facility] Adult [facility] Address [address] [place] [address]- Care Team Providers Care Records Clerk Name Role Phone Gail JONES, Jodie Primary Care Physician [phone] [facility]counter [facility] Date[facility]s): 04[facility]23 - 05/06/23 [facility] [address] [place] [id number] Allergies, Adverse Reactions, Alerts No Known [...] and trhee beers ( Alcohol,) per 5.9.2016 [place] record. sees cardioloy in [place] Confirmed 10/2015 Active Rectal bleed in past, declined work-up/did not attend Confirmed Active Severe obesity (BMI 35.0-39.9) with comorbidity Confirmed Active Sick sinus syndrome Confirmed Active Vitamin D deficiency Confirmed Active Social History Social History Type Response Smoking Status Former smoker entered on: 05/09/16 Sex Male Patient Care team information Care Team Personnel Name: Jodie Reynolds MD Position: [facility] Physician - Primary Care Member Role: PCP Address: Address: [address] [place] [phone]- Care Team Related Persons Name: FERNANDO QUEZADA Address: [address] [address]
--- OUTSIDE RECORDS SUMMARY | 2024-01-06 15:50 | XMS_ITS | Continuity of Care Document ---
Author Organization [facility] Adult [facility] Address [address] [place] [address]- Care Team Providers Care Hand Sewer Name Role Phone Jodie Reynolds MD Primary Care Physician [phone] Encounter [facility] Date(s): 05/26/22 - 06/25/22 [facility] [address] [place] [id number] Allergies, Adverse Reactions, Alerts No Known [...] 03/19 2Admin Note: vis 04/18 Medications ergocalciferol 98936 iu oral capsule 50,000 International_Units, 1, capsule, By Mouth, Every Sunday, for 30 days, # 5 capsule, Refills 1, Tot. Refills 1, Acute 07/24/22 19:36:00 EST, 05/25/22 19:36:00 EST, Route to Pharmacy Electronically, [facility]/pharmacy #[id number], Partial fill upon patient re... Start Date: [...] and trhee beers ( Alcohol,) per 5.9.2016 [place] record. sees cardioloy in [place] Confirmed 10/2015 Active Rectal bleed in past, declined work-up/did not attend Confirmed Active Severe obesity (BMI 35.0-39.9) with comorbidity Confirmed Active Sick sinus syndrome Confirmed Active Vitamin D deficiency Confirmed Active Social History Social History Type Response Smoking Status Former smoker entered on: 05/09/16 Sex Male Patient Care team information Care Team Personnel Name: Jodie Reynolds MD Position: [facility] Primary Care Physician Member Role: PCP Address: Address: [address] [place] [address]- Care Team Related Persons Name: FERNANDO QUEZADA Address: home [address] [place] [address]
--- OUTSIDE RECORDS SUMMARY | 2024-01-06 15:50 | XMS_ITS | Continuity of Care Document ---
Author Organization [facility] Adult [facility] Address [address] [place] [address]- Care Team Providers Care Brass Chaser Name Role Phone Jodie Reynolds MD Primary Care Physician [phone] [facility]counter [facility]s): 11/29/21 - 12/29/21 [facility] [address] [place] [id number] Attending Physician: Josseline Viramontes Admitting Physician: AdmJosseline ricardo Referring Physician: Admtr, ArCecilio Allergies, Adverse Reactions, Alerts No Known Allergies [...] 03/28/19 10:21:59 EDT, Route to Pharmacy Electronically, [id number], [facility]/pharmacy #[id number] Start Date: 03/28/19 Stop Date: 06/26/19 Status: Ordered fluticasone 50 mcg/inh nasal spray 1 sprays, Nares, Both, Daily in AM, # 1 each, 2 Refills, Maintenance, 09/30/19 14:33:00 EDT, [place],[facility]/pharmacy #[id number], only fill when he requests, 1 [...] and trhee beers ( Alcohol,) per 5.9.2016 [place] record. sees cardioloy in [place](Confirmed) 10/2015 Active Rectal bleed in past, declin ed work-up/did not attend(Confirmed) Active Sick sinus syndrome(Confirmed) Active Vitamin D deficiency(Confirmed) Active Social History Social History Type Response Smoking Status Former smoker entered on: 05/09/16 Sex Male
--- OUTSIDE RECORDS SUMMARY | 2024-01-06 15:50 | XMS_ITS | Continuity of Care Document ---
Author Organization [facility] Adult [facility] Address [address] [place] [address]- Care Team Providers Care Cloth Pattern Maker Name Role Phone Jodie Reynolds MD Primary Care Physician [facility]s): 04/06/23 - 05/10/23 [facility] [address] [place] [id number] Attending Physician: Ed JONES, Leigh T Admitting Physician: Ed JONES, Leigh T Allergies, Adverse Reactions, Alerts No Known Allergies [...] and trhee beers ( Alcohol,) per 5.9.2016 [place] record. sees cardioloy in [place] Confirmed 10/2015 Active Rectal bleed in past, declined work-up/did not attend Confirmed Active Severe obesity (BMI 35.0-39.9) with comorbidity Confirmed Active Sick sinus syndrome Confirmed Active Vitamin D deficiency Confirmed Active Social History Social History Type Response Smoking Status Former smoker entered on: 05/09/16 Sex Male Patient Care team information Care Team Personnel Name: Jodie Reynolds MD [facility] Phys[facility] - Primary Care Member Role: PCP Address: Address: [address] [place] [address]- Care Team Related Persons Name: FERNANDO QUEZADA Address: home [address] [place] [address]
--- OUTSIDE RECORDS SUMMARY | 2024-01-06 15:50 | XMS_ITS | Continuity of Care Document ---
Author Organization [facility] Adult [facility] Address [address] [place] [address]- Care Team Providers Care Recruitment Advertising Manager Name Role Phone Jodie Reynolds MD Primary Care Physician [facility]counter [facility] Date(s): 09/19/22 - 10/19/22 [facility] [address] [place] [id number] Attending Physician: Josseline Viramontes Admitting Physician: [...] VIS 03/19 2Admin Note: vis 04/18 Medications Metoprolol Succinate ER 50 mg oral tablet, [...] and trhee beers ( Alcohol,) per 5.9.2016 [place] record. sees cardioloy in [place] Confirmed 10/2015 Active Rectal bleed in past, [...] Personnel Name: Jodie Reynolds MD Position: S Primary Care Physician Member Role: PCP Address: Address: [address] [place] [address]- Care Team Related Persons Name: FERNANDO QUEZADA Address: home [address] [address]
--- OUTSIDE RECORDS SUMMARY | 2024-01-06 15:50 | XMS_ITS | Continuity of Care Document ---
Author Organization [facility] Adult [facility] Address [address] [place] [address]- Care Team Providers Care Retail Business Manager Name Role Phone Gail JONES, Jodie Primary Care Physician [facility]counter [facility] Date(s): 07/23/19 - 08/02/19 [facility] [address] [place] [address]- [facility] Attending Physician: Josseline Viramontes Admitting Physician: Josseline [...] 03/28/19 10:21:59 EDT, Route to Pharmacy Electronically, [id number], [facility]/pharmacy #[id number] Start Date: 03/28/19 Stop Date: 06/26/19 Status: Ordered fluticasone 50 mcg/inh nasal spray 1 sprays, Nares, Both, Daily in AM, # 1 each, 2 Refills, Maintenance, 04/09/18 16:28:28 EDT, [place],1 sprays Nares, Both Daily in AM Start [...] and trhee beers ( Alcohol,) per 5.9.2016 [place] record. sees cardioloy in [place](Confirmed) 10/2015 Active Rectal bleed in past, declin ed work-up/did not attend(Confirmed) Active Sick sinus syndrome(Confirmed) Active Vitamin D deficiency(Confirmed) Active Social History Social History Type Response Smoking Status Former smoker entered on: 05/09/16 Sex Male
--- OUTSIDE RECORDS SUMMARY | 2024-01-06 15:50 | XMS_ITS | Continuity of Care Document ---
Author Organization [facility] Adult [facility] Address [address] [place] [address]- Care Team Providers Care Palaeontologist Name Role Phone Jodie Reynolds MD Primary Care Physician [facility](s): 07/20/22 - 10/19/22 [facility] [address] [place] [id number] Attending Physician: Jodie Reynolds MD Admitting [...] Immunity status testing: equivocal immunity to Mumps -2016 Confirmed Active Hypertension Confirmed Active Prediabetes Confirmed 2013 Active Morbid obesity Confirmed Active Obesity Confirmed Active AF (paroxysmal atrial fibrillation), at time of 6 shots and trhee beers ( Alcohol,) per . [place] record. sees cardioloy in [place] Confirmed 10/2015 Active Rectal bleed in past, declined work-up/did not attend Confirmed Active Severe obesity (BMI 35.0-39.9) with comorbidity Confirmed Active Sick sinus syndrome Confirmed Active Vitamin D deficiency Confirmed Active Social History Social History Type Response Smoking Status Former smoker entered on: 05/09/16 Sex Male Patient Care team information Care Team Personnel Name: Jodie Reynolds MD Position: [facility] Primary Care Physician Member Role: PCP Address: Address: [address] [place] [address]- Care Team Related Persons Name: FERNANDO QUEZADA Address: home [address] [place] [address]
--- OUTSIDE RECORDS SUMMARY | 2024-01-06 15:50 | XMS_ITS | Continuity of Care Document ---
Author Organization [facility] Address [address] [place] [address] ve [address] [place] [address]- Care Team Providers Care Nursing Director Name Role Phone Gail JONES, Jodie Primary Care Physician [phone] Encounter [facility] Date(s): 07/04/19 - 10/03/[address] [place] [address]- [facility] Attending Physician: Desiree CHIRINOS, Roshni [place]ner Allergies, Adverse Reactions, Alerts Substance Reaction Severity [...] 03/28/19 10:21:59 EDT, Route to Pharmacy Electronically, [id number], [facility]/pharmacy #207 Start Date: 03/28/19 Stop Date: 06/26/19 Status: Ordered fluticasone 50 mcg/inh nasal spray 1 sprays, Nares, Both, Daily in AM, # 1 each, 2 Refills, Maintenance, 09/30/19 14:33:00 EDT, [place],[facility]/pharmacy #[id number], only fill when he requests, [...] and trhee beers ( Alcohol,) per 5.9.2016 [place] record. sees cardioloy in [place](Confirmed) 10/2015 Active Rectal bleed in past, declin ed work-up/did not attend(Confirmed) Active Sick sinus syndrome(Confirmed) Active Vitamin D deficiency(Confirmed) Active Social History Social History Type Response Smoking Status Former smoker entered on: 05/09/16 Sex Male
[2024-01-06 15:57] VITALS: BP 121/65; PULSE 83; RESP 20; TEMP 37.2; O2SAT 98
== END 2024-01-06 15:57 | disposition home or self-care (01) ==
LOC: HO.ED 15:47
PROVIDERS: Emergency Provider Emergency Medicine; PCP Internal Medicine
DX: Z48.01 Encounter for change or removal of surgical wound dressing (principal)
CPT/HCPCS: 99282